=== PATIENT | female | born 1940 | race Hispanic/Latino ===

== ENCOUNTER 2025-04-10 12:43 | Emergency (ER) | payer OTHER, SELFPAY ==
[2025-04-10 12:46] VITALS: BP 141/73
[2025-04-10] MEDS: LIDOCAINE 4% PATCH 1 PATCH TOPICAL (14:10)
[2025-04-10] MEDS: TYLENOL 650 MG PO (14:10)
[2025-04-10 14:24] LABS: Hematocrit 37.4 % (37.0-47.0); Hemoglobin 11.6 g/dL (12.0-16.0); Mean Corp Hgb Conc. 31.0 g/dL (33.0-37.0); Mean Corpuscular Volume 83.5 fL (81.0-99.0); Nucleated Red Blood Cells % 0 %; Platelet Count 121 10^3/uL (130-400); Red Cell Dist. Width 13.9 % (11.5-14.5)
--- NOTE | 2025-04-10 14:33 | ED.GENMED ---
History of Present Illness
General
Chief Complaint: Back Pain
Source: patient
Exam Limitations: none
Time Seen by Provider: 04/10/25 13:40
Nursing documentation reviewed up to this point in time: agreed with
History of Present Illness
History of Present Illness:
Patient is a 84-year-old female with history of hypertension, hyperlipidemia who presents to the emergency department for evaluation of lower back pain. Patient reports progressively worsening lower back discomfort over the past 2 weeks. She
denies any known trauma or inciting injury. She does also note mild pain in her left flank area. She denies any fevers, chills, weight loss. She denies any chest pain or shortness of breath. No rash. No numbness/tingling or weakness in lower
extremities. No loss of bowel/bladder control.
Pain is significantly worse with movement and ambulation.
Patient is currently visiting from [place] and is scheduled to return at the mid/end of April.
Of note�patient does report history of similar symptoms many years ago and was diagnosed with a bulging disc. This was treated with supportive care, injections, physical therapy.
Past History
Past History
ED Past Medical History: None
ED Past Surgical History: None
Social History
Tobacco: Non-smoker
Review of Systems
Review of Systems
Allergies reviewed?: Yes
All Other Systems: ROS reviewed and negative except as documented in HPI and ROS
Phy Exam
Physical Exam
Physical Exam:
Vitals: Hypertensive, otherwise vital signs stable. Afebrile
General: Patient is well appearing, no acute distress. Nontoxic appearing
Skin: Warm and dry, no rashes or lesions
Head: Normocephalic, atraumatic
Eyes: Sclera nonicteric.
Throat: Protecting airway
Neck: Normal ROM, no cervical spine tenderness, no meningismus
Cardiac: Regular rate and rhythm, no murmurs.
Pulm: Normal respiratory effort, no wheezes, rales, rhonchi heard on exam
Abdomen: Abdomen soft. Mild tenderness in left mid/left lower quadrant. No rebound tenderness or guarding.
Back: Mild reproducible tenderness across lower back. No erythema, rash, or ecchymoses. No CVA tenderness. Negative straight leg raise bilaterally
Extremities: No evidence of cyanosis or edema. Strength 5/5 in bilateral upper and lower extremities with normal sensation
Neuro: AAOx3. CN II-XII intact. No focal neurologic deficits.
Psychiatric: Normal affect.
Course
Orders/Labs/Results
Orders:
Orders
04/10/25 13:58
CT Abd/pelvis W Iv Cont Urgent
Comment:
Reason For Exam: Lower back pain, left abdominal pain
Acetaminophen [Tylenol] 650 mg PO NOW STA
Lidocaine [Lidocaine 4% Patch] 1 patch TOPICAL NOW STA
Apply Lidocaine patch(s) to:: lower back
04/10/25 13:59
Electrocardiogram (*1) Urgent
Reason for Study: Abdominal Pain
EKG- Treatment ONCE
04/10/25 14:07
Comprehensive Metabolic Panel Urgent
04/10/25 14:08
Complete Blood Count/With Diff Urgent
04/10/25 15:56
Urinalysis Reflex To Culture Urgent
Date Specimen was Collected: 04/10/25
Time Specimen was Collected: 14:15
Urine Microscopic Reflex Cult Urgent
Abnormal Lab Results
04/10/25 04/10/25 04/10/25
14:07 14:08 15:56
Hgb 11.6 L g/dL
(12.0-16.0)
MCH 25.9 L pg
(27.0-31.0)
MCHC 31.0 L g/dL
(33.0-37.0)
Plt Count 121 L 10^3/uL
(130-400)
MPV 12.0 H fL
(7.4-10.4)
Monocytes % 11.2 H %
(1.7-9.3)
BUN 29 H mg/dl
(7-17)
Creatinine 1.1 H mg/dL
(0.6-1.0)
Urine Bacteria (Reflex) Few A
(Negative)
Urine Albumin (Reflex) 2+ A
(Neg - Trace)
04/10/25 14:08
04/10/25 14:07
Vital Signs
Initial and Last Documented VS:
Initial Vital Signs
Temp Pulse Resp BP Pulse Ox
98.1 F 66 20 141/73 94
04/10/25 12:46 04/10/25 12:46 04/10/25 12:46 04/10/25 12:46 04/10/25 12:46
Last Documented Vital Signs
Temp Pulse Resp BP Pulse Ox
98.1 F 68 18 157/88 98
04/10/25 12:46 04/10/25 18:38 04/10/25 18:38 04/10/25 18:38 04/10/25 18:38
MDM/Problems Addressed
Differential Diagnosis Includes:
Not limited to: Muscle strain, muscle spasm, neuropathic pain, pyelonephritis, diverticulitis, etc.
MDM/Problems Addressed:
84-year-old female presenting with progressively worsening lower back pain over the past 2 weeks, worse with movement. Also reports a vague abdominal discomfort. No known trauma. No fevers or urinary symptoms. No neurologic symptoms, including
bowel/bladder incontinence, saddle paresthesias or weakness in lower extremities. History of similar symptoms many years ago, which was apparently a herniated disc in [place]. Vitals and exam as above.
Differential includes suspected musculoskeletal back pain, pyelonephritis, renal colic, diverticulitis. No neurologic findings on exam concerning for cauda equina. No rash to suggest zoster. Will treat pain and given component of abdominal pain
and age�will obtain labs, UA, CT scan to rule out other possible etiologies for pain.
Update: Labs reviewed. No clinically significant abnormalities. Mild renal insufficiency which appears baseline. UA without evidence of infection. EKG shows normal sinus rhythm without acute ischemic changes. CT scan reveals degenerative
changes in L5/S1 without other infectious etiologies in the abdomen/pelvis. Patient provided copy of CT report for outpatient follow-up when she returns [place].
Workup in ED unremarkable. Patient has had some improvement in symptoms after Tylenol and lidocaine patch. At this point�suspect musculoskeletal back pain. Feel stable for discharge home and supportive care, orthopedic follow-up/physical therapy.
Return precautions discussed with patient and daughter who are comfortable with plan. All questions answered.
Chronic conditions affecting care:
Hypertension
Acute Exacerbation and/or Progression of Chronic Illness:
Acutely hypertensive
*Radiology
Radiology exam reviewed: radiology read reviewed
*Pulse Oximetry
SaO2: 94
Oxygen Mode of Delivery: Room air
Patient hypoxic: no
*EKG
Interpreted by ED Provider?: Yes
EKG Intrepretation Date: 04/10/25
Interpretation: normal
Comparison EKG: no comparison EKG present
Heart Rate: 65
Rate: normal
Rhythm: sinus
[place]: normal axis
Interval: normal interval
QRS Pattern: normal QRS
Ischemia: no ischemia
*Ed Educational Aide Interpretation
Rate: Ed Educational Aide- N/A
*Critical Care Note
Total Time (30-74mins, 75-104mins- exclusive of procedures): Not Applicable
ED Attending Note
-
Portions of this chart may have been created with voice recognition software.� Occasional wrong word or��sound alike� substitutions may have occurred due to the inherent limitations of voice recognition software.
Discharge Plan
Departure
Patient Disposition: Home (Routine Discharge)
Date of Disposition: 04/10/25
Time of Disposition: 18:34
Patient with high blood pressure during this ER visit?: Yes
Discharge Problem:
Low back pain
Instructions: Low Back Pain (DC), BLOOD PRESSURE
Prescriptions:
New
prednisone 20 mg tablet
40 mg PO DAILY 5 Days Qty: 10 0RF
lidocaine 5 % adhesive patch,medicated
1 patch topical DAILY Qty: 15 0RF
No Action
valsartan [Diovan] 160 MG capsule
160 mg PO DAILY
oxybutynin chloride 10 MG tablet extended release 24hr
10 mg PO DAILY
cilostazol 50 MG tablet
50 mg PO Daily
paroxetine HCl [Paxil] 20 MG tablet
20 mg PO DAILY
simvastatin 20 MG tablet
20 mg PO DAILY
clonazepam 2 MG tablet
2 mg PO DAILY
ibandronate [Boniva] 150 MG tablet
150 mg PO DAILY
clindamycin HCl 300 MG capsule
300 mg PO QID Qty: 28 0RF
Referrals:
NONE,* [Active, Internal Medicine]
Activity Restrictions/Additional Instructions:
RETURN TO THE EMERGENCY DEPARTMENT WITH ANY INTRACTABLE PAIN, NUMBNESS/TINGLING OR WEAKNESS IN EXTREMITIES, LOSS OF BOWEL/BLADDER CONTROL, CHEST PAIN OR SHORTNESS OF BREATH, SEVERE ABDOMINAL PAIN, DIFFICULTIES URINATING, WORSENING OF CURRENT
SYMPTOMS, OR ANY OTHER CONCERNS
- As discussed�your lab work showed mild elevation in your kidney function which appears baseline. Please stay well-hydrated
- You were given a copy of your CT report to review with your primary care provider.
- You can take Tylenol and apply lidocaine patches as needed for lower back pain. A prescription for steroids open sent to your pharmacy.
Monitor your symptoms closely and return to the emergency department with any acute worsening/new symptoms or any other concerns
Interventions
Interventions:
*Risk Screen - Suicide Last Done: 04/10/25 12:46
*General Assessment Last Done: 04/10/25 12:46
*Neglect/Abuse Screening Last Done: 04/10/25 12:46
*Nursing Disposition Last Done: 04/10/25 18:39
ED-Musculoskeletal Assessment Last Done: 04/10/25 14:50
Discharge Date and Time
Discharge Date/Time: 04/10/25 18:40
Print Language: [id number]
[2025-04-10 14:47] LABS: ALT (SGPT) 11 U/L (0-35); AST (SGOT) 27 U/L (14-36); Albumin 4.1 g/dl (3.5-5.0); Alkaline Phosphatase 69 U/L (38-126); Blood Urea Nitrogen 29 mg/dl (7-17); Calcium 9.4 mg/dl (8.4-10.2); Carbon Dioxide 28 mmol/L (22-30); Chloride 106 mmol/L (98-107); Glucose 95 mg/dl (70-99); Potassium 4.8 mmol/L (3.5-5.1); Sodium 138 mmol/L (135-145); Total Protein 6.4 g/dl (6.3-8.2); eGFR 49.24
[2025-04-10 16:08] LABS: Urine Character Clear (Clear)
[2025-04-10 16:18] LABS: Urine Red Blood Cell 0-2 /HPF (0-2)
[2025-04-10 18:38] VITALS: BP 157/88
== END 2025-04-10 18:40 | disposition home or self-care (01) ==
LOC: EMR 12:43
PROVIDERS: Physician Assistant; EMERGENCY PHYSICIAN Emergency Medicine
DX: M54.50 Low back pain, unspecified (principal); I10 Essential (primary) hypertension; E78.5 Hyperlipidemia, unspecified
CPT/HCPCS: 99285; 74177; 80053; 81003; 81015; 85025; 93005; Q9967